=== PATIENT | male | born 1995 | race Hispanic/Latino ===

== ENCOUNTER 2020-06-11 01:26 | Emergency (ER) | payer SELFPAY ==
[2020-06-11] MEDS ORDERED: KETOROLAC 30 MG/1 ML INJ IM ONE (03:48)
[2020-06-11] MEDS ORDERED: ONDANSETRON 4 MG ODT TAB PO ONE (03:48)
[2020-06-11] MEDS ORDERED: oxyCODONE /ACETAMINOPHEN 5-325MG TAB PO ONE (03:48)
[2020-06-11] MEDS ORDERED: GABAPENTIN 300 MG CAP PO ONE (03:48)
--- NOTE | 2020-06-11 04:49 | Cat Scan Report ---
CT LUMBAR SPINE WITHOUT CONTRAST INDICATION: Back injury - fall from ladder x 1 week ago.. TECHNIQUE: Axial CT images of the spine were obtained. Sagittal and coronal reformatted images were produced. Al l CT scans at this location are performed using CT dose reduction for ALARA by means of automated exp osure control. COMPARISON: None available. FINDINGS: ACUTE FRACTURE(S) OR SUBLUXATION: None. SPINAL DEGENERATIVE CHANGES: No significant degenerative changes. PARASPINAL SOFT TISSUES: No soft tissue swelling or other acute abnormalities. ADDITIONAL FINDINGS: No significant additional findings. IMPRESSION: 1. No acute fracture or subluxation in the spine in neutral position. Signer Name: Fredrick Valencia MD Signed: 06/11/2020 4:44 AM Workstation Name: [id number]
[2020-06-11 05:01] VITALS: BP 125/84
--- NOTE | 2020-06-11 05:04 | Emergency Department Report ---
ED Fall HPI - General Chief Complaint: Back Pain/Injury Stated Complaint: BACK PAIN Source: patient Mode of arrival: Ambulatory - History of Present Illness Initial Comments: Patient is a 25-year-old male with past medical history of hypertension and who presents to the ED with complaint of acute onset persistent severe low back pain that radiates to the left leg after he slipped and fell off a 7 foot ladder about a week ago. Patient states that the pain has been manageable and he thought that the pain would resolve on its own but that in the last 2 days the pain has worsened both at rest and with any physical activity or movement. Patient states that he has not been able to sit down for long because of severe low back pain especially in the last 2 days. Patient states that he has been taking [id number] medications with no relief. Patient denies bilateral upper and lower extremity numbness and tingling or weakness, dizziness, syncope, seizures, chest pain, shortness of breath, head or neck injuries, abdominal pain, hematuria, testicular pain, urinary or bowel incontinence, loss of consciousness, saddle paresthesia or nausea and vomiting and change in vision. MD Complaint: fall, other (severe low back pain that radiates to the left leg) -: Sudden, week(s) (1) Fall From: from height (distance) (7 feet ladder) When Fall Occurred: # days [employer] (7) Fall Witnessed: yes, by bystander Place Fall Occurred: work Loss of Consciousness: none Prolonged Down Time?: no Symptoms Prior to Fall: none Location: back (lower back) Severity: severe Severity scale (0 -10): 8 Quality: sharp, aching Context: tripped/slipped Associated Symptoms: denies. denies: headache, neck pain, numbness, weakness, chest paint, shortness of breath, abdominal pain, hematuria, unable to walk, lightheaded, vertigo, confusion - Related Data Previous Rx's Medication Instructions Recorded Last Taken Type Gabapentin 300 mg PO Q8H PRN #45 capsule 06/11/20 Unknown Rx Naproxen 500 mg PO Q12H PRN #30 tablet 06/11/20 Unknown Rx predniSONE [Deltasone] 60 mg PO DAILY #15 tablet 06/11/20 Unknown Rx Allergies Allergy/AdvReac Type Severity Reaction Status Date / Time No Known Allergies Allergy Unverified 06/11/20 02:07 ED Review of Systems ROS: Stated complaint: BACK PAIN Other details as noted in HPI Constitutional: denies: chills, fever Eyes: denies: eye pain, eye discharge, vision change ENT: denies: ear pain, throat pain Respiratory: denies: cough, shortness of breath, wheezing Cardiovascular: denies: chest pain, palpitations Endocrine: no symptoms reported Gastrointestinal: denies: abdominal pain, nausea, diarrhea Genitourinary: denies: urgency, dysuria Musculoskeletal: back pain (Low back pain), arthralgia (Diffuse body aches and pains), myalgia, other (Left leg pain). denies: joint swelling Skin: denies: rash, lesions Neurological: denies: headache, weakness, paresthesias Psychiatric: denies: anxiety, depression Hematological/Lymphatic: denies: easy bleeding, easy bruising ED Past Medical Hx - Past Medical History Hx Hypertension: Yes - Surgical History Additional Surgical History: Right knee and leg FX - Social History Smoking Status: Current Every Day Smoker Substance Use Type: None - Medications Home Medications: Home Medications Medication Instructions Recorded Confirmed Last Taken Type Gabapentin 300 mg PO Q8H PRN #45 capsule 06/11/20 Unknown Rx Naproxen 500 mg PO Q12H PRN #30 tablet 06/11/20 Unknown Rx predniSONE [Deltasone] 60 mg PO DAILY #15 tablet 06/11/20 Unknown Rx ED Physical Exam - General Limitations: No Limitations General appearance: alert, in no apparent distress - Head Head exam: Present: atraumatic, normocephalic, normal inspection - Eye Eye exam: Present: normal appearance, PERRL, EOMI Pupils: Present: normal accommodation - ENT ENT exam: Present: normal exam, normal orophraynx, mucous membranes moist, TM's normal bilaterally, normal external ear exam - Neck Neck exam: Present: normal inspection, full ROM. Absent: tenderness - Respiratory Respiratory exam: Present: normal lung sounds bilaterally. Absent: respiratory distress, wheezes, rales, rhonchi, chest wall tenderness, decreased breath sounds - Cardiovascular Cardiovascular Exam: Present: regular rate, normal rhythm, normal heart sounds. Absent: systolic murmur, diastolic murmur, rubs, gallop - GI/Abdominal GI/Abdominal exam: Present: soft, normal bowel sounds. Absent: tenderness, guarding, rebound, hyperactive bowel sounds, hypoactive bowel sounds, organomegaly - Extremities Exam Extremities exam: Present: normal inspection, full ROM, normal capillary refill. Absent: tenderness, pedal edema, joint swelling, calf tenderness - Back Exam Back exam: Present: normal inspection, full ROM, tenderness (Palpable lumbosacral paraspinal musculoskeletal tenderness), muscle spasm, paraspinal tenderness. Absent: CVA tenderness (R), CVA tenderness (L), vertebral tenderness - Neurological Exam Neurological exam: Present: alert, oriented X3, CN II-XII intact, normal gait, reflexes normal - Psychiatric Psychiatric exam: Present: normal affect, normal mood, anxious - Skin Skin exam: Present: warm, dry, intact, normal color. Absent: rash ED Medical Decision Making - Radiology Data Radiology results: report reviewed, image reviewed Findings [facility] [address] [id number] Cat Scan Report Signed Patient: ARIELLE CALLAWAY MR#: [id number] : 1995 Acct:[id number] Age/Sex: 25 / M ADM Date: 06/11/20 Loc: ED Attending Dr: Ordering Physician: MARCOS CORNELIUS Date of Service: 06/11/20 Procedure(s): CT lumbar spine wo con Accession Number(s): [id number] cc: MARCOS CORNELIUS CT LUMBAR SPINE WITHOUT CONTRAST INDICATION: Back injury - fall from ladder x 1 week ago.. TECHNIQUE: Axial CT images of the spine were obtained. Sagittal and coronal reformatted images were produced. All CT scans at this location are performed using CT dose reduction for ALARA by means of automated exposure control. COMPARISON: None available. FINDINGS: ACUTE FRACTURE(S) OR SUBLUXATION: None. SPINAL DEGENERATIVE CHANGES: No significant degenerative changes. PARASPINAL SOFT TISSUES: No soft tissue swelling or other acute abnormalities. ADDITIONAL FINDINGS: No significant additional findings. IMPRESSION: 1. No acute fracture or subluxation in the spine in neutral position. Signer Name: Fredrick Valencia MD Signed: 06/11/2020 4:44 AM Workstation Name: [id number] Transcribed By: SW Dictated By: Fredrick Valencia MD Electronically Authenticated By: Fredrick Valencia MD Signed Date/Time: 06/11/20443 DD/ 0 TD/TT: - Medical Decision Making This is a 25-year-old male with past medical history of hypertension who presents to the ED with complaint of acute onset persistent severe low back pain that radiates to the left leg after he slipped and fell off a 7 foot ladder about a week ago. Patient states that the pain has been manageable and he thought that the pain would resolve on its own but that in the last 2 days the pain has worsened both at rest and with any physical activity or movement. Patient states that he has not been able to sit down for long because of severe low back pain especially in the last 2 days. Patient states that he has been taking [id number] medications with no relief. In the ED, patient is alert and oriented x3 and is not in distress but appears to be in pain. Patient was treated for pain in the ED. The L-spine CT scan without contrast showed no acute fractures or subluxations of the lumbar spine. On reevaluation, patient's pain is well controlled medications. Patient will discharge home on pain medications and was advised to follow-up with his primary care physician in 5 to 7 days for reevaluation or return to the ED immediately if symptoms get worse. - Differential Diagnosis Lumbar disc fracture; muscle spasm; muscle strain; sciatica; contusion Critical care attestation.: If time is entered above; I have spent that time in minutes in the direct care of this critically ill patient, excluding procedure time. ED Disposition Clinical Impression: Spasm of muscle of lower back, Strain of muscle, fascia and tendon of lower back, initial encounter Lumbar contusion Qualifiers: Encounter type: initial encounter Qualified Code(s): S30.0XXA - Contusion of lower back and pelvis, initial encounter Disposition: TO HOME OR SELFCARE Is pt being admited?: No Does the pt Need Aspirin: No Condition: Stable Instructions: Muscle Strain (ED), Muscle Spasm (ED), Low Back Strain (ED), Lumbar Radiculopathy (ED) Additional Instructions: The L-spine CT scan without contrast showed no acute fractures or subluxations of the lumbar spine. Therefore take pain medications and follow-up with your primary care physician in 5 to 7 days for reevaluation. Return to the ED immediately if symptoms get worse. Prescriptions: predniSONE [Deltasone] 60 mg PO DAILY #15 tablet Gabapentin 300 mg PO Q8H PRN #45 capsule PRN Reason: Neuropathy Naproxen 500 mg PO Q12H PRN #30 tablet PRN Reason: Pain , Severe (7-10) Referrals: [facility] [Provider Group] - 3-5 Days Forms: Work/School Release Form(ED) Time of Disposition: 05:09 Print Language: MONGOLIAN
== END 2020-06-11 06:06 | disposition home or self-care (01) ==
LOC: ED 01:26
DX: S39.012A Strain of muscle, fascia and tendon of lower back, initial encounter (principal); I10 Essential (primary) hypertension; F17.200 Nicotine dependence, unspecified, uncomplicated; Z79.899 Other long term (current) drug therapy; X58.XXXA Exposure to other specified factors, initial encounter; Y93.89 Activity, other specified; Y92.89 Other specified places as the place of occurrence of the external cause; Y99.8 Other external cause status
CPT/HCPCS: 72131; 99283; J1885; Q0162